=== PATIENT | female | born 1980 | race Hispanic/Latino ===

== ENCOUNTER 2020-08-21 21:45 | Emergency (ER) | payer OTHER ==
[~2020-08-21] VITALS: Ht 152.4 cm; Wt 83.0 kg
[~2020-08-21 21:45] MED LIST: PHARMACY COMMUNICATION MISC SCH
[2020-08-21 21:56] VITALS: BP 216/117
[2020-08-21] MEDS ORDERED: NIFEDIPINE 10 MG CAP PO SCH ×2 (22:15→23:15)
[2020-08-21 22:27] LABS: BASOPHILS % (AUTO) 0.6 % (0.0-5.0); EOSINOPHILS % (AUTO) 0.1 % (0.0-8.0); HEMATOCRIT 39.2 % (36-48); LYMPHOCYTES % (AUTO) 25.8 % (21.0-51.0); MEAN CORPUSCULAR HEMOGLOBIN 26.2 pg (27.0-33.0); MEAN CORPUSCULAR HGB CONC 32.9 g/dL (32.0-36.0); MEAN CORPUSCULAR VOLUME 79.5 fL (79-99); MONOCYTES % (AUTO) 9.8 % (3.0-13.0); NEUTROPHILS % (AUTO) 63.3 % (40.0-77.0); PLATELET COUNT (AUTO) 234 K/uL (130-400); RED BLOOD CELL COUNT(AUTO) 4.93 MIL/uL (4.00-5.50); RED CELL DISTRIBUTION WIDTH 13.5 % (11.0-15.5)
[2020-08-21] MEDS ORDERED: ACETAMINOPHEN 650 MG/20.3 ML UDCUP ONE (22:27)
[2020-08-21 22:30] LABS: APPEARANCE,URINE Cloudy (CLEAR); BILIRUBIN,URINE Small (NEGATIVE); COLOR,URINE Orange (YELLOW); GLUCOSE, URINE (UA) >=1000 mg/dL (NEGATIVE); KETONES,URINE Trace mg/dL (NEGATIVE); LEUKOCYTE ESTERASE ,URINE Small (NEGATIVE); NITRATE,URINE Positive (NEGATIVE); OCCULT BLOOD,URINE Large (NEGATIVE); PROTEIN,URINE POS 2+ mg/dL (NEGATIVE)
[2020-08-21] MEDS ORDERED: SODIUM CHLORIDE 0.9% 1000ML 1,000 ML IV SCH ×2 (22:30→23:30)
[2020-08-21] MEDS ORDERED: INSULIN HUMULIN R 100 UNIT/ML 3ML IV SCH ×2 (22:30→23:30)
[2020-08-21] MEDS ORDERED: ACETAMINOPHEN 325 MG TAB PO SCH (22:30)
[2020-08-21 22:31] LABS: HCG,QUAL RESULT NEGATIVE (NEGATIVE)
[2020-08-21 22:40] LABS: ALBUMIN 3.8 g/dL (3.5-5.0); BILIRUBIN,TOTAL 0.7 mg/dL (0.2-1.0); CREATININE 0.9 mg/dL (0.5-1.5); TOTAL PROTEIN, SERUM 9.1 g/dL (6.0-8.3)
[2020-08-21 22:45] LABS: RBC,URINE TNTC /HPF (0-1)
[2020-08-21 22:46] LABS: BACTERIA,URINE Moderate /HPF (None Seen)
[2020-08-21 23:37] LABS: ABG HCO3 24.1 mmol/L (21.0-28.0); ABG OXYGEN SATURATION 95.7 % (95.0-99.0); ABG PCO2 38 mmHg (32-45)
[2020-08-22] MEDS ORDERED: PHARMACY COMMUNICATION MISC SCH (00:45)
[2020-08-22 01:25] VITALS: BP 129/83
[2020-08-22] MEDS ORDERED: CEFTRIAXONE SODIUM 1 GM ONE (01:58)
[2020-08-22] MEDS ORDERED: INSULIN HUMULIN R 100 UNIT/ML 3ML IV SCH (02:00)
[2020-08-22] MEDS ORDERED: HYDR25TA PO (02:21)
[2020-08-22] MEDS ORDERED: CEPH500B PO (02:21)
[2020-08-22] MEDS ORDERED: METF-444 PO (02:21)
[2020-08-22 02:43] VITALS: BP 129/79
[2020-08-22] MEDS ORDERED: CEFTRIAXONE SODIUM 500 MG (DOSE 250-750MG) VIAL IV SCH (09:00)
== END 2020-08-22 03:02 | disposition home or self-care (01) ==
LOC: EDH 21:45
DX: E11.65 Type 2 diabetes mellitus with hyperglycemia (principal); N39.0 Urinary tract infection, site not specified; E86.0 Dehydration; I10 Essential (primary) hypertension; E66.9 Obesity, unspecified; Z88.8 Allergy status to other drugs, medicaments and biological substances; Z88.0 Allergy status to penicillin; Z91.041 Radiographic dye allergy status; Z79.899 Other long term (current) drug therapy; Z88.7 Allergy status to serum and vaccine; Z79.84 Long term (current) use of oral hypoglycemic drugs
CPT/HCPCS: 36415; 36600; 71045; 80053; 81001; 81025; 82803; 82948 ×3; 84484; 85025; 87077; 87088; 87186; 96361; 96374; 96375; 96376 ×2; 99284; J0696; J1815 ×3; J7030

== ENCOUNTER → 2020-08-25 | Outpatient (CLI) | payer OTHER ==
[~2020-08-25] MED LIST changes: +CEPH500B PO; +HYDR25TA PO; +METF-444 PO; -PHARMACY COMMUNICATION MISC SCH
[2020-08-25 10:45] LABS: BASOPHILS % (AUTO) 0.6 % (0.0-5.0); EOSINOPHILS % (AUTO) 4.7 % (0.0-8.0); HEMATOCRIT 39.2 % (36-48); LYMPHOCYTES % (AUTO) 43.6 % (21.0-51.0); MEAN CORPUSCULAR HEMOGLOBIN 26.3 pg (27.0-33.0); MEAN CORPUSCULAR HGB CONC 32.7 g/dL (32.0-36.0); MEAN CORPUSCULAR VOLUME 80.5 fL (79-99); MONOCYTES % (AUTO) 8.4 % (3.0-13.0); NEUTROPHILS % (AUTO) 42.5 % (40.0-77.0); PLATELET COUNT (AUTO) 241 K/uL (130-400); RED BLOOD CELL COUNT(AUTO) 4.87 MIL/uL (4.00-5.50); RED CELL DISTRIBUTION WIDTH 13.4 % (11.0-15.5); WHITE BLOOD COUNT (AUTO) 4.9 K/uL (4.8-10.8)
[2020-08-25 10:48] LABS: HEMOGLOBIN A1C 13.5 % (4.0-6.0)
[2020-08-25 11:05] LABS: ALBUMIN 3.6 g/dL (3.5-5.0); BILIRUBIN,TOTAL 0.5 mg/dL (0.2-1.0); CREATININE 0.8 mg/dL (0.5-1.5); POTASSIUM 4.2 mmol/L (3.5-5.1); THYROID STIMULATING HORMONE 0.97 uIU/mL (0.36-3.74); TOTAL PROTEIN, SERUM 8.5 g/dL (6.0-8.3)
== END | disposition home or self-care (01) ==
LOC: LAB 10:07
PROVIDERS: ATTEND Family Medicine
DX: Z09 Encounter for follow-up examination after completed treatment for conditions other than malignant neoplasm (principal); I10 Essential (primary) hypertension; E11.9 Type 2 diabetes mellitus without complications; Z68.35 Body mass index [BMI] 35.0-35.9, adult
CPT/HCPCS: 36415; 80053; 80061; 82043; 83036; 84443; 85025